=== PATIENT | female | born 2000 | race African-American/Black ===

== ENCOUNTER 2022-01-24 19:57 | Inpatient (IN) ==
[2022-01-24] MEDS ORDERED: METHYLERGONOVINE 0.2 MG/1 ML AMP IM PRN (20:06)
[2022-01-24] MEDS ORDERED: TRANEXAMIC ACID 1,000 MG in SODIUM CHLORIDE 0.9% 100 ML IV PRN (20:06)
[2022-01-24] MEDS ORDERED: OXYTOCIN/LR 20 UNIT/1,000 ML BAG IV ONE (20:06)
[2022-01-24] MEDS ORDERED: LACTATED RINGERS 500 ML IV PRN (20:06)
[2022-01-24] MEDS ORDERED: LACTATED RINGERS 250 ML IV ONE (20:06)
[2022-01-24] MEDS ORDERED: miSOPROStoL 200 MCG TABLET RECTAL PRN (20:06)
[2022-01-24] MEDS ORDERED: ONDANSETRON 4 MG/2 ML VIAL IV PRN (20:06)
[2022-01-24] MEDS ORDERED: CARBOPROST TROMETHAMINE 250 MCG/ML AMP IM PRN (20:06)
[2022-01-24] MEDS ORDERED: LACTATED RINGERS 1,000 ML IV SCH (20:30)
[2022-01-24 20:34] LABS: Basophils % 0.2 % (0.0-0.8); Eosinophils # 0.1 10*3/uL (0.0-0.87); Eosinophils % 0.6 % (0.00-10.9); Hematocrit 26.8 VOL% (35.7-47.0); Hemoglobin 8.2 GM/DL (12.0-16.0); Immature Granulocytes % 1.7 %; Immature Granulocytes Absolute 0.32 #; Lymphocytes % 10.8 % (21.3-54.2); Mean Corpuscular HGB Conc 30.6 GM/DL (32-36); Mean Corpuscular Volume 83.2 FL (87-102); Mean Platelet Volume 9.4 FL (9.6-12.0); Monocytes # 1.3 10*3/uL (0.11-0.8); Monocytes % 6.7 % (1.7-12.7); NRBC # 0.02 10*3/uL; Platelet Count 370 T/CUMM (130-400); Red Blood Count 3.22 MC/CUMM (3.8-5.5); Red Cell Distribution Width 18.2 % (9.3-17.3); White Blood Count 18.9 T/CUMM (4-12)
[2022-01-25] MEDS ORDERED: diphenhydrAMINE 50 MG/1 ML VIAL IV PRN ×2 (08:52)
[2022-01-25] MEDS ORDERED: NALOXONE 0.4 MG/ML VIAL IV PRN (08:52)
[2022-01-25] MEDS ORDERED: hydrOXYzine HCL 25 MG/1 ML VIAL IM PRN (08:52)
[2022-01-25] MEDS ORDERED: CITRIC ACID/SODIUM CITRATE 30 ML UDCUP PO ONE (08:52)
[2022-01-25] MEDS ORDERED: ePHEDrine 50 MG/ML VIAL IV PRN (08:52)
[2022-01-25] MEDS ORDERED: LACTATED RINGERS 1,000 ML IV ONE (08:52)
[2022-01-25] MEDS ORDERED: FAMOTIDINE 20 MG/2 ML VIAL IV ONE (08:52)
[2022-01-25] MEDS ORDERED: PROMETHAZINE 25 MG/1 ML VIAL IM ONE (08:52)
[2022-01-25] MEDS ORDERED: fentaNYL 2 MCG/ROPIV 0.2% EPID 100 ML EPIDURAL SCH (09:00)
[2022-01-25] MEDS ORDERED: OXYTOCIN/LR 20 UNIT/1,000 ML BAG IV SCH (09:00)
[2022-01-25 10:30] LABS: Bacteria,Urine Occasional /HPF (Few); Bilirubin,Urine Negative (Negative); Blood, Urine Negative (Negative); Glucose,Urine (UA) Negative (Negative); Ketones,Urine Negative (Negative); Mucus,Urine Occasional /LPF (Occasional); Nitrite,Urine Negative (Negative); Protein,Urine Negative (Negative); RBC,Urine 1 /HPF (0-4); Squamous Epithelial Cell,Urine Occasional /HPF (0-10); Urine Appearance Clear (Clear); Urine Color Yellow (Yellow); Urine Specific Gravity 1.015 (1.001-1.035); Urine Urobilinogen 0.2 eU/dL (<2.0)
[2022-01-25] MEDS ORDERED: TRANEXAMIC ACID 1,000 MG/10 ML VIAL ONE (12:57)
[2022-01-25] MEDS ORDERED: miSOPROStoL 200 MCG TABLET ONE (12:57)
[2022-01-25] MEDS ORDERED: SODIUM CHLORIDE 0.9% 0 ML IV ONE (12:57)
[2022-01-25] MEDS ORDERED: CARBOPROST TROMETHAMINE 250 MCG/ML AMP IM ONE (12:58)
[2022-01-25] MEDS ORDERED: METHYLERGONOVINE 0.2 MG/1 ML AMP ONE (12:58)
[2022-01-25] MEDS ORDERED: MEPERIDINE 25 MG/1 ML VIAL IV ONE (15:54)
[2022-01-25 16:11] LABS: Cord Venous Blood HCO3 21.9 MMOL/L; Cord Venous Blood PCO2 46.6 MMHG
[2022-01-25] MEDS ORDERED: IBUPROFEN 800 MG TABLET PO PRN (19:36)
[2022-01-25] MEDS: BENZOCAINE 20%/MENTHOL 0.5% SPRAY 56 GM CAN TOP PRN (20:01)
[2022-01-25] MEDS ORDERED: BENZOCAINE 20%/MENTHOL 0.5% SPRAY 56 GM CAN TOP PRN (20:51)
[2022-01-25] MEDS ORDERED: BISACODYL 10 MG SUPP RECTAL PRN (20:51)
[2022-01-25] MEDS ORDERED: OXYTOCIN/LR 20 UNIT/1,000 ML BAG IV ONE (20:51)
[2022-01-25] MEDS ORDERED: MEASLES/MUMPS/RUBELLA VACCINE 0.5 ML VIAL SUBCUT ONE (20:51)
[2022-01-25] MEDS ORDERED: ONDANSETRON 4 MG/2 ML VIAL IV PRN (20:51)
[2022-01-25] MEDS ORDERED: RHO(D) IMMUNE GLOBULIN 300 MCG SYRINGE IM ONE (20:51)
[2022-01-25] MEDS ORDERED: HYDROCORTISONE 2.5% RECTAL CREAM 30 GM TUBE TOP PRN (20:51)
[2022-01-25] MEDS ORDERED: ACETAMINOPHEN 325 MG TABLET PO PRN (20:51)
[2022-01-25] MEDS ORDERED: DIPH/TET/ACEL PERT BOOSTER VACCINE 0.5 ML VIAL IM ONE (20:51)
[2022-01-25] MEDS ORDERED: LANOLIN 50% CREAM 0.3 OZ TUBE TOP PRN (20:51)
[2022-01-25] MEDS ORDERED: WITCH HAZEL PADS 100/JAR TOP PRN (20:51)
[2022-01-25] MEDS ORDERED: oxyCODONE/ACETAMINOPHEN 5-325 MG TABLET PO PRN (20:51)
[2022-01-26] MEDS: oxyCODONE/ACETAMINOPHEN 5-325 MG TABLET PO PRN ×3 (04:13→20:25)
[2022-01-26 05:34] LABS: Basophils % 0.2 % (0.0-0.8); Eosinophils # 0.1 10*3/uL (0.0-0.87); Eosinophils % 0.4 % (0.00-10.9); Hematocrit 22.7 VOL% (35.7-47.0); Immature Granulocytes Absolute 0.22 #; Lymphocytes # 2.5 10*3/uL (1.4-4.0); Lymphocytes % 11.2 % (21.3-54.2); Mean Corpuscular HGB Conc 30.8 GM/DL (32-36); Mean Corpuscular Volume 83.8 FL (87-102); Mean Platelet Volume 10.1 FL (9.6-12.0); Monocytes # 1.9 10*3/uL (0.11-0.8); Monocytes % 8.4 % (1.7-12.7); Neutrophils % 78.8 % (38.7-73.9); Platelet Count 332 T/CUMM (130-400); Red Blood Count 2.71 MC/CUMM (3.8-5.5); Red Cell Distribution Width 18.6 % (9.3-17.3); White Blood Count 22.3 T/CUMM (4-12)
[2022-01-26 06:06] LABS: Lymphocytes 17 % (20-55); Macrocytosis Slight; Microcytosis Slight; Platelet Estimate Adequate; Total Cells Counted 100
[2022-01-26] MEDS: DOCUSATE SODIUM 100 MG CAPSULE PO SCH ×2 (09:11→20:50)
[2022-01-26] MEDS: IBUPROFEN 800 MG TABLET PO PRN (20:25)
[2022-01-26] MEDS: IRON (CARBONYL)/VIT C/B12/FA TABLET PO SCH (20:25)
[2022-01-26] MEDS: BENZOCAINE 20%/MENTHOL 0.5% SPRAY 56 GM CAN TOP PRN (21:24)
[2022-01-27] MEDS: IBUPROFEN 800 MG TABLET PO PRN (06:00)
[2022-01-27 07:23] VITALS: BP 114/56
[2022-01-27] MEDS ORDERED: MULTIVITAMIN (PRENATAL) TABLET PO SCH (09:00)
[2022-01-27] MEDS: DOCUSATE SODIUM 100 MG CAPSULE PO SCH (09:56)
[2022-01-27] MEDS: IRON (CARBONYL)/VIT C/B12/FA TABLET PO SCH (09:56)
== END 2022-01-27 12:10 | disposition home or self-care (01) | DRG 560 ==
LOC: N.LDOUT 19:57 → N.LD 20:00 → N.OB 01-26 14:00
PROVIDERS: ADMIT Specialist; ATTEND Specialist